=== PATIENT | male | born 1990 | race Caucasian/White ===

== ENCOUNTER 2017-07-04 09:43 | Emergency (ER) | payer OTHER ==
[2017-07-04 09:56] VITALS: BP 147/93
[2017-07-04] MEDS ORDERED: BACITRACIN OINT TOP STA (10:07)
--- NOTE | 2017-07-04 10:09 | ED Physician Documentation ---
History of Present Illness - Stated complaint Stated Complaint: EAR LAC - Chief complaint Chief Complaint: Laceration - History obtained from History obtained from: Patient - History of Present Illness Timing: Yesterday, How many hours ago (28) Pain level max: 3 Pain level now: 0 - Additonal information Additional information: Patient states that he woke up yesterday and when he was going back to bed he cut his right ear in the right side of his head on the bed frame. He went to work today and they sent him here to be evaluated. He currently has no complaints. No headache. No loss of consciousness. No active bleeding. Review of Systems Constitutional: denies: Fever, Chills Ears: denies: Drainage/discharge Nose: denies: Rhinorrhea / runny nose, Congestion GI: denies: Vomiting, Diarrhea Skin: denies: Rash Musculoskeletal: denies: Neck pain, Back pain Neurologic: denies: Headache PD PAST MEDICAL HISTORY - Past Medical History Past Medical History: No - Past Surgical History Past Surgical History: No - Present Medications Home Medications: Ambulatory Orders Medication Instructions Recorded Confirmed No Known Home Medications [No 07/04/17 07/04/17 Known Home Medications] - Allergies Allergies/Adverse Reactions: Allergies Allergy/AdvReac Type Severity Reaction Status Date / Time No Known Drug Allergies Allergy Verified 07/04/17 09:53 - Social History Does the pt smoke?: No Smoking Status: Never smoker PD ED PE NORMAL - Vitals Vital signs reviewed: Yes - General General: Alert and oriented X 3, No acute distress - HEENT HEENT: PERRL, EOMI, Pharynx benign - Neck Neck: Supple, no meningeal sign, No bony TTP - Derm Derm: Warm and dry - Neuro Neuro: Alert and oriented X 3, cyber ops planner 2-12 intact, No motor deficit, No sensory deficit, Normal speech Eye Opening: Spontaneous Motor: Obeys Commands Verbal: Oriented GCS Score: 15 PD ED PE EXPANDED - HEENT HEENT Visual: 1 - laceration (Superficial, 6 cm in length. Well approximated. Cartilage is completely covered. No significant ecchymosis) Results - Vitals Vitals: Oxygen O2 Source Room air PD MEDICAL DECISION MAKING - ED course Complexity details: considered differential, d/w patient ED course: Patient is a 26-year-old male who presents to the emergency department with a laceration to the right side of the head that goes on to the ear. This has been present for over 24 hours, do not feel it is appropriate to suture this at this time given the length of time it has been open. Cartilage is completely covered and it is very well approximated. Instead it was cleansed and bandaged gently. We will have him follow-up closely with his doctor for frequent wound checks to ensure that the cartilage does not become infected. Tetanus is up-to- date. Patient counseled regarding signs and symptoms for which I believe and urgent re-evaluation would be necessary. Patient with good understanding of and agreement to plan and is comfortable going home at this time This document was made in part using voice recognition software. While efforts are made to proofread this document, sound alike and grammatical errors may occur. Departure - Departure Disposition: 01 Home, Self Care Clinical Impression: Laceration of ear Qualifiers: Encounter type: initial encounter Laterality: right Qualified Code(s): S01.311A - Laceration without foreign body of right ear, initial encounter Condition: Good Instructions: ED Wound Care Follow-Up: your,pcm tomorrow [Other] Comments: You need to follow-up with her PCM tomorrow for a wound check. This needs to be monitored very closely to ensure it does not become infected. Return if you worsen. Discharge Date/Time: 07/04/17 10:28
== END 2017-07-04 10:28 | disposition home or self-care (01) ==
LOC: ED 09:43
DX: S01.311A Laceration without foreign body of right ear, initial encounter (principal); W22.03XA Walked into furniture, initial encounter
CPT/HCPCS: 99283; A9270